=== PATIENT | male | born 1965 | race African-American/Black ===

== ENCOUNTER 2019-11-24 09:24 | Emergency (ER) | payer MEDICAID ==
[~2019-11-24] VITALS: Ht 188 cm; Wt 109.1 kg
[2019-11-24] MEDS ORDERED: KETOROLAC TROMETHAMINE 60 MG/2 ML VIAL IM ONE (11:00)
[2019-11-24 12:35] VITALS: BP 145/94
== END 2019-11-24 12:35 | disposition home or self-care (01) ==
LOC: EMS 09:46
DX: S82.891A Other fracture of right lower leg, initial encounter for closed fracture (principal); F17.210 Nicotine dependence, cigarettes, uncomplicated; W19.XXXA Unspecified fall, initial encounter; Y93.89 Activity, other specified; Y92.89 Other specified places as the place of occurrence of the external cause; Y99.8 Other external cause status
CPT/HCPCS: 29515; 73590; 73610; 99284; 99406; J1885

== ENCOUNTER → 2019-12-18 | Outpatient (CLI) | payer MEDICAID | END | disposition home or self-care (01) | LOC: RADPV 09:40 | PROVIDERS: ATTEND Podiatrist Foot & Ankle Surgery | DX: M79.89 Other specified soft tissue disorders (principal); S82.61XD Displaced fracture of lateral malleolus of right fibula, subsequent encounter for closed fracture with routine healing; S82.891D Other fracture of right lower leg, subsequent encounter for closed fracture with routine healing; X58.XXXD Exposure to other specified factors, subsequent encounter | CPT/HCPCS: 73610-TC ==